=== PATIENT | male | born 1975 | race Caucasian/White ===

== ENCOUNTER 2017-09-14 21:30 | Emergency (ER) | payer BC ==
[~2017-09-14] VITALS: Ht 182.9 cm; Wt 79.5 kg
[2017-09-14 21:36] VITALS: TEMP 98.5
[2017-09-14] MEDS ORDERED: MUCUS RELIEF400 M1 PO (21:57)
[2017-09-14] MEDS ORDERED: PROTONIX 40MG T40 MG PO (21:58)
[2017-09-14] MEDS ORDERED: LOPRESSOR 550 MG/TAB PO (21:58)
[2017-09-14] MEDS ORDERED: AMOXICILLIN875 MG PO (21:59)
[2017-09-14] MEDS ORDERED: PREDNISONE20 MG PO (22:38)
[2017-09-14 22:39] VITALS: BP 114/90; PULSE 51
== END 2017-09-14 22:46 | disposition home or self-care (01) ==
LOC: COL.ER 21:30
DX: T36.0X5A Adverse effect of penicillins, initial encounter (principal); K21.9 Gastro-esophageal reflux disease without esophagitis; I10 Essential (primary) hypertension; F17.210 Nicotine dependence, cigarettes, uncomplicated
CPT/HCPCS: J7512

== ENCOUNTER → 2017-11-26 | Outpatient (CLI) | payer BC ==
[~2017-11-26] MED LIST: AMOXICILLIN875 MG PO; LOPRESSOR 550 MG/TAB PO; MUCUS RELIEF400 M1 PO; PREDNISONE20 MG PO; PROTONIX 40MG T40 MG PO
== END ==
LOC: COL.RAD 07:17
DX: G37.9 Demyelinating disease of central nervous system, unspecified (principal); R25.1 Tremor, unspecified
CPT/HCPCS: A9585

== ENCOUNTER 2019-04-07 10:13 | Emergency (ER) | payer BC ==
[2019-04-07] MEDS ORDERED: LIDO2%JEL30 RC (11:23)
== END 2019-04-07 11:40 | disposition left against medical advice (07) ==
LOC: COL.ER 10:13
DX: R69 Illness, unspecified (principal)

== ENCOUNTER 2019-04-07 10:26 | Emergency (ER) | payer OTHER ==
[~2019-04-07] VITALS: Ht 182.9 cm; Wt 81.8 kg
[2019-04-07] MEDS ORDERED: LIDO2%JEL30 RC (11:23)
[2019-04-07 11:40] VITALS: BP 131/84; PULSE 86; TEMP 98.3
== END 2019-04-07 11:40 | disposition home or self-care (01) ==
LOC: COL.ER 10:26
DX: K60.2 Anal fissure, unspecified (principal); F17.210 Nicotine dependence, cigarettes, uncomplicated; I10 Essential (primary) hypertension

== ENCOUNTER → 2019-06-19 | Outpatient (CLI) | payer OTHER ==
[~2019-06-19] MED LIST changes: +LIDO2%JEL30 RC
== END ==
LOC: COL.PUL 07:46
DX: I10 Essential (primary) hypertension (principal); K21.9 Gastro-esophageal reflux disease without esophagitis; R22.1 Localized swelling, mass and lump, neck; J30.1 Allergic rhinitis due to pollen; K21.0 Gastro-esophageal reflux disease with esophagitis; Z86.79 Personal history of other diseases of the circulatory system

== ENCOUNTER → 2024-04-26 | Outpatient (CLI) | payer OTHER | LOC: COL.CARD 15:20 | DX: R00.2 Palpitations (principal) ==